=== PATIENT | male | born 1975 | race African-American/Black ===

== ENCOUNTER 2024-04-20 10:41 | Inpatient (IN) | payer OTHER ==
[2024-04-20 12:24] VITALS: BMI 28.5
[2024-04-20] MEDS ORDERED: POLYETHYLENE GLYCOL (HEALTHYLAX) 3350 17 GM PACKET PO PRN (13:43)
[2024-04-20] MEDS ORDERED: MAGNESIUM HYDROX 2400MG/30ML ORAL SUSPENSION 30 ML CUP PO PRN (13:43)
[2024-04-20] MEDS ORDERED: guaiFENesin 200 MG/10 ML 10 ML UNIT-DOSE CUPS PO PRN (13:43)
[2024-04-20] MEDS ORDERED: MAG HYDROX/AL HYDROX/SIMETH 30 ML UNIT-DOSE CUP PO PRN (13:43)
[2024-04-20] MEDS ORDERED: LOPERAMIDE HCL 2 MG CAPSULE PO PRN (13:43)
[2024-04-20] MEDS ORDERED: ACETAMINOPHEN 325 MG TABLET (FP) PO PRN (13:43)
[2024-04-20] MEDS ORDERED: IBUPROFEN 400 MG TABLET (FP) PO PRN (13:43)
[2024-04-20] MEDS ORDERED: ONDANSETRON *ODT* 4 MG TABLET SL PRN (13:43)
[2024-04-20] MEDS: METHOCARBAMOL 500 MG TABLET PO PRN (22:34)
[2024-04-20] MEDS: MELATONIN 5 MG TABLETS PO PRN (22:34)
[2024-04-20] MEDS: hydrOXYzine PAMOATE 25 MG CAPSULE (FP) PO PRN (22:34)
[2024-04-21 11:03] LABS: HEMATOCRIT 39.3 % (35.4-49); HEMOGLOBIN 12.9 GM/dL (11.7-16.9); MCH 29.3 pg (25.7-33.7); MCHC 32.9 g/dl (32.0-35.9); MEAN CELL VOLUME 89.3 fl (80-96); PLATELET COUNT 261 10^3/uL (134-434); RBC 4.41 M/mm3 (4.00-5.60); RDW 15.1 % (11.9-15.9); WHITE BLOOD COUNT 7.9 K/mm3 (4.0-10.0)
[2024-04-21] MEDS ORDERED: guaiFENesin 600 MG TABLET.ER (FP) PO PRN (11:27)
[2024-04-21] MEDS ORDERED: NALOXONE HCL 0.4 MG/ML VIAL IM PRN (11:27)
[2024-04-21] MEDS ORDERED: IBUPROFEN 600 MG TABLET (FP) PO PRN (11:27)
[2024-04-21] MEDS ORDERED: DICYCLOMINE HCL 10 MG CAPSULE PO PRN (11:27)
[2024-04-21] MEDS ORDERED: NALOXONE (NARCAN) HCL 4 MG/0.1 ML SPRAY NS PRN (11:27)
[2024-04-21] MEDS ORDERED: BENZONATATE 200 MG CAPSULE PO PRN (11:27)
[2024-04-21] MEDS ORDERED: BENZOCAINE/MENTHOL (CHLORASEPTIC ) LOZENGE MM PRN (11:27)
[2024-04-21] MEDS ORDERED: BISMUTH SUBSALICYLATE 524 MG/30 ML PO PRN (11:27)
[2024-04-21] MEDS ORDERED: cloNIDine HCL 0.1 MG TABLET PO PRN (11:33)
[2024-04-21 13:03] LABS: HIV INTERPRETATION NEGATIVE (NEGATIVE)
[2024-04-21] MEDS: methaDONE HCL 10 MG TABLET PO ONE (15:22)
[2024-04-21] MEDS: cloNIDine HCL 0.1 MG TABLET PO SCH (17:13)
[2024-04-21] MEDS: THIAMINE 100 MG TABLET PO SCH (22:23)
[2024-04-22] MEDS ORDERED: methaDONE HCL 40 MG DISPERSABLE TABLET PO ONE (10:00)
[2024-04-22] MEDS: methaDONE HCL 10 MG TABLET PO ONE (10:04)
[2024-04-22] MEDS: PRENATAL VITAMINS W/ FOLIC ACID TABLET (FP) PO SCH (10:04)
[2024-04-22] MEDS: NICOTINE POLACRILEX 2 MG GUM BC PRN (22:17)
[2024-04-23] MEDS ORDERED: methaDONE HCL 40 MG DISPERSABLE TABLET PO ONE (10:00)
[2024-04-23] MEDS ORDERED: methaDONE HCL 10 MG TABLET PO ONE (10:00)
[2024-04-23 13:57] LABS: POTASSIUM 4.2 mmol/L (3.5-5.1)
[2024-04-23 14:14] LABS: CREATININE 1.3 mg/dL (0.55-1.3)
[2024-04-23 14:15] LABS: BILIRUBIN,TOTAL 0.3 mg/dL (0.2-1); TOT PROT 5.4 g/dl (6.4-8.2)
[2024-04-24] MEDS: methaDONE HCL 10 MG TABLET PO ONE (09:14)
[2024-04-24] MEDS ORDERED: methaDONE HCL 40 MG DISPERSABLE TABLET PO ONE (10:00)
[2024-04-24] MEDS ORDERED: methaDONE HCL 10 MG TABLET PO ONE (10:00)
[2024-04-25 09:15] VITALS: BP 120/67; PULSE 74; RESP 16; TEMP 98.2
[2024-04-25] MEDS ORDERED: methaDONE HCL 40 MG DISPERSABLE TABLET PO ONE (10:00)
[2024-04-25] MEDS ORDERED: methaDONE 40 MG, methaDONE 10 MG PO ONE (10:00)
[2024-04-25] MEDS ORDERED: methaDONE HCL 10 MG TABLET PO ONE (10:00)
== END 2024-04-25 11:25 | disposition other institution (70) | DRG 773 ==
LOC: YASAS 10:41 → Y6N 13:27
PROVIDERS: ADMIT Allergy & Immunology; ATTEND Surgery
PROC: HZ2ZZZZ Detoxification Services for Substance Abuse Treatment (ICD-10-PCS; principal; 2024-04-20)
DX: F11.23 Opioid dependence with withdrawal (principal); F14.10 Cocaine abuse, uncomplicated; F12.10 Cannabis abuse, uncomplicated; F17.210 Nicotine dependence, cigarettes, uncomplicated; J45.20 Mild intermittent asthma, uncomplicated
CPT/HCPCS: 36415; 80053; 80305; 85027; 86803; 87389; 93005; 93010